=== PATIENT | female | born 1950 | race Caucasian/White ===

== ENCOUNTER → 2019-08-03 | Outpatient (CLI) | payer BC ==
--- NOTE | 2019-08-03 14:49 | CT ---
INDICATION: Acute left lower quadrant/flank pain on the left, question renal calculus - hematuria present. CT ABDOMEN AND PELVIS WITHOUT CONTRAST: Spiral 2.5 mm axial sections were obtained through the abdomen and pelvis with renal calculus protocol, including sagittal and coronal reconstructions, 08/03/19, and compared with CT of the chest from 05/23/09. Total exam DLP = 1,610.60 mGy-cm. Minimal fibrotic changes and minimal stable nodularity, compatible with post granulomatous change, are noted in the lower lung armstrong and pleural spaces visualized - no active infiltrate or effusion was suggested. Evidence of gastric bypass bariatric surgery is noted. The liver, gallbladder, right kidney, except for some minimal scarring, spleen, and pancreas appeared normal. The adrenal glands were unremarkable and unchanged from the previous study. On the left, as well as on the right, there is no evidence of renal calcinosis. However, on the left, there is relatively prominent renal pelvis - pyelocaliectasis and ureterectasis down to the left ureteropelvic junction, where a 5 mm calculus is noted, possibly with an additional smaller calculus present in that area, apparently producing obstructive uropathy of moderate degree on the left. Retroperitoneal lymphadenopathy is minimal and nonspecific. No retroperitoneal mass lesions were seen. There are phleboliths noted in the pelvis. There may be some thickening of the urinary bladder wall, which could be on the basis of cystitis but should be correlated clinically. No urinary bladder calculi were seen. A small umbilical hernia is noted, including only fat. The appendix was not visualized. Diverticulosis coli is noted in the transverse , descending, and especially sigmoid colon with some ascending diverticulosis also present. No definite evidence of diverticulitis was seen, however. No free air or obstruction was seen. No additional organomegaly, mass lesions, or free fluid collections were identified in the abdomen or pelvis. Hypertrophic degenerative changes are minimal with moderate disk space loss at L4-5 and grade 1 anterolisthesis at L4-5. IMPRESSION: 1. Obstructive uropathy, moderate, due to a 5 mm calculus at the left ureterovesical junction. No renal calcinosis. Mild renal cortical scarring, left greater than right. 2. Small umbilical hernia with only fat included. 3. Post gastric bypass surgery. Report was called to Yola Solares NP at 1403 hours on 08/03/19. MTDD
== END ==
LOC: FB.DI 13:24
PROVIDERS: ATTEND Nurse Practitioner Family
DX: R10.32 Left lower quadrant pain (principal); N13.8 Other obstructive and reflux uropathy; N28.89 Other specified disorders of kidney and ureter; K42.9 Umbilical hernia without obstruction or gangrene; Z98.84 Bariatric surgery status
CPT/HCPCS: 74176